=== PATIENT | female | born 1960 | race Caucasian/White ===

== ENCOUNTER 2017-06-27 15:50 | Emergency (ER) | payer OTHER, MEDICARE ==
[~2017-06-27] VITALS: Ht 170.2 cm; Wt 172.8 kg
[2017-06-27] MEDS ORDERED: NOVOLOG100 UNIT/1 SUBQ (16:13)
[2017-06-27] MEDS ORDERED: VICTOZA0.6 MG/0.1 SUBQ (16:14)
[2017-06-27] MEDS ORDERED: TRESIBA FL100 UNIT/1 SUBQ (16:14)
[2017-06-27] MEDS ORDERED: METOPROLOL SUC100 MG PO (16:15)
[2017-06-27] MEDS ORDERED: GLUCOPHAGE XR500 MG PO (16:15)
[2017-06-27] MEDS ORDERED: LIPITOR 20 MG T20 M1 PO (16:15)
[2017-06-27] MEDS ORDERED: HYDROCHLOROTHIA25 M2 PO (16:16)
[2017-06-27] MEDS ORDERED: CLONIDINE0.1 PO (16:16)
[2017-06-27] MEDS ORDERED: PRINIVIL20 MG PO (16:16)
[2017-06-27] MEDS ORDERED: VITAMIN D2000 UNIT PO (16:17)
[2017-06-27] MEDS ORDERED: B12INJ IM (16:17)
[2017-06-27] MEDS ORDERED: CHILDREN'S ASPI81 M1 PO (16:18)
[2017-06-27] MEDS ORDERED: NORFLEX100 MG PO (16:18)
[2017-06-27] MEDS ORDERED: DILAUDID 2 MG TA2 MG PO (16:18)
[2017-06-27] MEDS ORDERED: AMITRIPTYLINE H25 M2 PO (16:19)
[2017-06-27] MEDS ORDERED: DESYREL300 MG PO (16:19)
[2017-06-27] MEDS ORDERED: KEFLEX500 M1 PO (16:33)
[2017-06-27 16:57] VITALS: BP 165/93
== END 2017-06-27 16:59 | disposition home or self-care (01) ==
LOC: M.ERS 15:50
DX: S81.812A Laceration without foreign body, left lower leg, initial encounter (principal); E11.40 Type 2 diabetes mellitus with diabetic neuropathy, unspecified; E78.5 Hyperlipidemia, unspecified; J45.909 Unspecified asthma, uncomplicated; E11.22 Type 2 diabetes mellitus with diabetic chronic kidney disease; I12.9 Hypertensive chronic kidney disease with stage 1 through stage 4 chronic kidney disease, or unspecified chronic kidney disease; N18.2 Chronic kidney disease, stage 2 (mild); Z90.710 Acquired absence of both cervix and uterus; Z98.890 Other specified postprocedural states; Z79.4 Long term (current) use of insulin; X58.XXXA Exposure to other specified factors, initial encounter; Y93.89 Activity, other specified; Y92.89 Other specified places as the place of occurrence of the external cause; Y99.8 Other external cause status

== ENCOUNTER → 2017-07-22 | Outpatient (CLI) | payer MEDICARE ==
[~2017-07-22] MED LIST: AMITRIPTYLINE H25 M2 PO; B12INJ IM; CHILDREN'S ASPI81 M1 PO; CLONIDINE0.1 PO; DESYREL300 MG PO; DILAUDID 2 MG TA2 MG PO; GLUCOPHAGE XR500 MG PO; HYDROCHLOROTHIA25 M2 PO; KEFLEX500 M1 PO; LIPITOR 20 MG T20 M1 PO; METOPROLOL SUC100 MG PO; NORFLEX100 MG PO; NOVOLOG100 UNIT/1 SUBQ; PRINIVIL20 MG PO; TRESIBA FL100 UNIT/1 SUBQ; VICTOZA0.6 MG/0.1 SUBQ; VITAMIN D2000 UNIT PO
== END ==
LOC: M.RAD 16:37
DX: M19.042 Primary osteoarthritis, left hand (principal); M25.742 Osteophyte, left hand; E11.21 Type 2 diabetes mellitus with diabetic nephropathy; N04.9 Nephrotic syndrome with unspecified morphologic changes; Z79.4 Long term (current) use of insulin